=== PATIENT | male | born 1950 | race Caucasian/White ===

== ENCOUNTER 2019-11-02 10:35 | Outpatient (CLI) | payer MEDICARE ==
--- NOTE | 2019-11-02 11:36 | XRAY Report ---
Reason: CHRONIC BILATERAL SHOULDER PAIN Procedure Date: 11/02/2019 Accession Number: [id number] / [id number] Procedure: WCP - Shoulder 3 View BILAT CPT Code: Final Report FULL RESULT: PROCEDURE: Shoulder 3 View BILAT INDICATIONS: CHRONIC BILATERAL SHOULDER PAIN TECHNIQUE: 3 views of each shoulder were acquired. COMPARISON: None. FINDINGS: Bones: No fractures or dislocations. No suspicious bony lesions. Visualized ribs appear intact. There is mild periarticular osteophyte formation at the bilateral acromioclavicular joints. Soft tissues: Small focus of calcification projects over the right rotator cuff. IMPRESSION: 1. Bilateral acromial clavicular joint osteoarthritis. 2. Findings suggestive of right-sided rotator cuff calcific tendinitis. Confirmation with noncontrast MRI is recommended. Reviewed by: Noah Rizvi MD on 11/02/2019 11:35 AM PDT Approved by: Noah Rizvi MD on 11/02/2019 11:35 AM PDT Station ID: [id number]
== END 2019-11-02 23:59 | disposition home or self-care (01) ==
LOC: DI.WCP 10:35
PROVIDERS: ATTEND Nurse Practitioner
DX: M19.012 Primary osteoarthritis, left shoulder (principal); M19.011 Primary osteoarthritis, right shoulder; R93.6 Abnormal findings on diagnostic imaging of limbs; M25.511 Pain in right shoulder; M25.512 Pain in left shoulder; G89.29 Other chronic pain
CPT/HCPCS: 36415; 85651; 86140

== ENCOUNTER 2020-04-16 16:54 | Outpatient (CLI) | payer MEDICARE | END 2020-04-16 16:55 | disposition home or self-care (01) | LOC: COV 16:54 | PROVIDERS: ATTEND Family Medicine | DX: Z20.828 Contact with and (suspected) exposure to other viral communicable diseases (principal) ==